=== PATIENT | female | born 1935 | race Caucasian/White ===

== ENCOUNTER 2021-10-17 16:04 | Emergency (ER) | payer MEDICARE ==
[~2021-10-17 16:04] MED LIST: POLYSPORIN OP3.5 GM TOP
[2021-10-17 17:21] LABS: HEMOGLOBIN 13.7 gm/dl (12.3-15.3); RED BLOOD COUNT 4.16 M/UL (4.00-5.10); WHITE BLOOD COUNT 7.4 K/UL (4.5-11.0)
[2021-10-17 17:47] LABS: BUN/CREATININE RATIO 17 (0-10)
== END 2021-10-17 18:30 | disposition home or self-care (01) ==
LOC: ER1 16:04
PROVIDERS: Family Medicine
DX: I10 Essential (primary) hypertension (principal); F17.200 Nicotine dependence, unspecified, uncomplicated; Z20.822 Contact with and (suspected) exposure to COVID-19; R63.4 Abnormal weight loss
CPT/HCPCS: 70450; 71045; 80053; 81001; 82550; 82553; 83605; 83874; 84439; 84443; 84484; 85025; 93005; 99284; U0002